=== PATIENT | female | born 1990 | race Two or more races ===

== ENCOUNTER → 2017-06-21 17:07 | Outpatient (CLI) | payer OTHER, SELFPAY ==
[2017-06-21 17:53] LABS: Basophils % 0.5 % (0.1-2.0); Eosinophils # 0.2 K/mm3 (0.0-0.4); Hematocrit 40.9 % (37.0-47.0); Hemoglobin 13.5 g/dL (12.2-16.2); Lymphocytes # 2.1 K/mm3 (0.7-4.5); Lymphocytes % 28.2 K/mm3 (10-50); Mean Corpuscular Volume 87.7 fl (81-99); Mean Platelet Volume 8.4 fl (7.4-10.4); Monocytes # 0.3 K/mm3 (0.1-1.0); Monocytes % 4.4 % (1.7-9.3); Neutrophils # 4.8 K/mm3 (1.8-7.8); Neutrophils % 63.9 % (37.0-80.0); Platelet Count 219 K/mm3 (142-424); Red Blood Count 4.67 M/mm3 (4.20-5.40); Red Cell Distribution Width 13.1 % (11.5-17.5); White Blood Count 7.5 K/mm3 (4.8-10.8)
[2017-06-23 08:25] LABS: HIV Screen 4th Generation wRfx Non Reactive (Non Reactive)
[2017-06-23 11:12] LABS: Hepatitis B Surface Antigen Negative (Negative); Hepatitis C Antibody 0.1 s/co ratio (0.0-0.9); Rapid Plasma Reagin Ab Titer Non Reactive (NonRea<1:1); Rubella Antibodies, IgG 1.85 index (Immune >0.99)
== END ==
PROVIDERS: Visit Provider Nurse Practitioner Obstetrics & Gynecology
DX: Z34.90 Encounter for supervision of normal pregnancy, unspecified, unspecified trimester (principal)
CPT/HCPCS: 36415; 85025; 86592; 86703; 86762; 86850; 87340; 87380; G0432

== ENCOUNTER → 2017-06-29 14:51 | Outpatient (CLI) | payer OTHER, SELFPAY ==
--- NOTE | 2017-06-29 14:58 | US_ITS ---
US OB transvaginal HISTORY: Evaluate gestational age ITS.REASON: DATES ORDERING PHYSICIAN: Pedro Montero MD PATIENT AGE: 27 years COMPARISON: None FINDINGS: There is a live intrauterine gestation with a crown-rump length of 4.9 cm correlating to gestational age of 11 weeks 5 days. heart and body motion is detected. Estimated due date is 01/13/2018. heart tones are present with an FHR of 1 45 bpm. There is a triangular-shaped area of heterogeneous decreased echogenicity adjacent to the described . This is of questionable clinical significance and could represent a resolving sac or an area of retroplacental hemorrhage. Continued follow-up is recommended. Adnexa are not well delineated.. IMPRESSION: 1. Live IUP at 11 weeks 5 days with an estimated due date of 01/13/2018. 2. Decreased echogenicity along the lower uterine segment adjacent to the gestation and could be related to resolving sac or small area of retroplacental hemorrhage. Continued follow-up recommended
== END ==
PROVIDERS: Visit Provider Nurse Practitioner Obstetrics & Gynecology
DX: O26.841 Uterine size-date discrepancy, first trimester (principal)
CPT/HCPCS: 76830

== ENCOUNTER → 2017-08-30 14:37 | Outpatient (CLI) | payer OTHER, SELFPAY ==
--- NOTE | 2017-08-30 14:38 | US_ITS ---
US OB /maternal detail: INDICATION: ITS.REASON: 20 wk + Anatomy Scan OB Complete ORDERING PHYSICIAN: Pedro Montero MD PATIENT AGE: 27 years TECHNIQUE: ultrasound transabdominal scanning. COMPARISON: No previous relevant studies. FINDINGS: Single viable intrauterine gestation. cephalic position. Placenta: posterior placenta grade 1. There is average amount fluid. The cervix appears satisfactory. Closed and measuring 4 cm in length. Complete survey performed and was unremarkable on the submitted images as in PACS. No discrete anomalies identified on survey imaging by technologist. Active fetus. Three-vessel cord with satisfactory umbilical cord insertion. 4- chamber heart noted. Survey of brain & ventricles. Face and neck survey unremarkable. Diaphragm and chest views unremarkable. Abdomen: Both kidneys noted and unremarkable. Stomach noted and satisfactory. Spine: Survey of the spine satisfactory with no anomalies identified nor imaged. Both arms and legs noted. Amniotic Fluid: Adequate. Maternal adnexa: No significant findings. Measurements: Average ultrasound age 21w1d. Gestational Age 20w4d. Estimated due date by ultrasound age 0801/09/2018. Estimated weight 410 grams.. This is 82nd percentile BPD = 21w1d OFD = 21w1d HC = 20w3d AC = 21w6d FL = 21w0d Heart Rate = 147 bpm Cerebellum = 20w6d Humerus = 21w0d HC/AC is 1.07 (1.09-1.26). CI is 78% (70-86%). FL/BPD is 70%. FL/AC is 21%. IMPRESSION: Live intrauterine gestation which is in cephalic presentation with an average ultrasound age of 21 weeks and 1 day. No obvious anomalies. Please see above for detail
== END ==
PROVIDERS: Family Provider Nurse Practitioner Obstetrics & Gynecology; PCP Nurse Practitioner Obstetrics & Gynecology; Visit Provider Nurse Practitioner Obstetrics & Gynecology
DX: Z36.0 Encounter for antenatal screening for chromosomal anomalies (principal)
CPT/HCPCS: 76811

== ENCOUNTER → 2017-12-13 18:02 | Outpatient (REF) | payer OTHER, SELFPAY | LOC: LAB 18:02 | PROVIDERS: Visit Provider Nurse Practitioner Obstetrics & Gynecology | DX: Z34.90 Encounter for supervision of normal pregnancy, unspecified, unspecified trimester (principal) | CPT/HCPCS: 86403 ==

== ENCOUNTER 2018-01-09 07:40 | Inpatient (IN) ==
--- NOTE | 2018-01-09 08:08 | History & Physical Report ---
OB - H&P: HPI Antepartum - History of Present Illness Chief complaint: Contractions History of present illness: She is a 27-year-old 4 para 3 at 39+ weeks gestational age. She began having contractions about 4:00 this morning. She arrived and she is found to be 9 cm dilated. - History of Present Criteria for establishing EDC:: LMP confirmed by 1st trimester US care: good care Ultrasounds: normal 1st trimester US, normal mid trimester US Obstetrical complications: none Medical complications: none H History I have reviewed the patient's past medical history: Yes Amputation: No Fractures: No - *Social History Smoking Status: Never smoker Alcohol Intake: never Substance Use Type: denies use *Family Hx:: Unable to obtain Review of Systems - Review of Systems Review of systems:: pertinent systems reviewed and negative unless documented below Meds Home Medications Medication Instructions Recorded Confirmed Type 1 tab PO QDAY 06/21/17 History vitamin,calcium,mvcrhdee-atlk-bifvz acid tablet Allergies Allergy/AdvReac Type Severity Reaction Status Date / Time No Known Allergies Allergy Verified 01/01/18 16:23 OB - H&P: Exam - Constitutional no acute distress - Routine HEENT Exam Head: Present: normocephalic Eye: Present: EOMI, PERRL ENT: Present: mucous membranes moist - Routine Neck Exam Present: supple, full ROM - Routine Respiratory Exam Absent: accessory muscle use (good air entry bilaterally), respiratory distress , wheezes, crackles - Routine Cardiovascular Exam Present: RRR. Absent: murmur - Routine Abdominal Exam Present: soft, normoactive bowel sounds. Absent: tenderness, distended, guarding - Routine Rectal Exam Patient deferred: visual exam, digital exam - Routine Exam Patient deferred: external exam, groin exam, perineal exam - Routine Extremities Exam Present: full ROM. Absent: cyanosis, edema - Routine Skin Exam Present: intact. Absent: cyanosis - Routine Neurological Exam Present: alert, oriented X3 - Routine Psychiatric Exam Present: normal affect OB - A/P Antepartum (1) Normal delivery Current visit: Yes Status: Acute (2) Current visit: No Status: Acute - Additional Plan Planning to breastfeed?: Yes Plan: expectant management Additional Information:: She is 9 cm dilated and will deliver shortly
--- NOTE | 2018-01-09 08:22 | Procedure Note ---
- Delivery Note Delivery Date:: 01/09/18 Delivery Time:: 08:14 Anesthesia Type: None Was labor medically induced?: No Induction method: none Gestational age (weeks): 39 delivered prior to 39 weeks?: No Justification for early elective delivery:: Active Labor Infant Gender: Male at 1 minute: 9 at 5 minutes: 9 AF:: Clear fluid Delivery Procedure:: She is a 27-year-old 4 para 3 who came in in active labor. She is found to be 9 cm dilated. She subsequently progressed to full dilation and delivered spontaneously a live born male child at 8:14 AM on the morning of January 09, 2018. On deliver the head there was a nuchal cord that was easily reduced. This was followed by the rest of the 's body atraumatically. The oropharynx and nasopharynx were bulb suctioned. The baby cried spontaneously. We allow the cord to continue to pulsate for 1 minute. The cord was then doubly clamped and cut and the infant was placed on the mother's abdomen for further care. The nurses assigned Apgars of 9 at 1 minute and 9 at 5. She then received IV oxytocin and gentle traction on the cord and countertraction the fundus I was able to easily deliver the placenta intact. Normal three-vessel cord. There were no perineal or vaginal lacerations. She plans to breast-feed. The estimated blood loss was less than 400 cc. Placental Delivery Description: Spontaneous
[2018-01-09 08:47] VITALS: BP 120/60
[2018-01-09 08:50] LABS: Appearance,Urine CLEAR (Clear); Bilirubin,Urine Negative (Negative); Blood, Urine TRACE-I (Negative); Color,Urine YELLOW (Yellow); Glucose,Urine (UA) Negative (Negative); Ketones,Urine Negative (Negative); Leukocyte Esterase,Urine Negative (Negative); Microscopic, Urine URINE MICROSCOPIC (MICROSCOPIC); PH,Urine 6.5 (5.0-8.5); Protein,Urine Negative (Negative); Urobilinogen,Urine 0.2 EU/dl (0.2)
[2018-01-09 08:59] LABS: Bacteria,Urine 1+ /lpf; Mucus,Urine 1+ /lpf; RBC,Urine Occasional #/hpf (0-3); Squamous Epithelial Cell,Urine 20-50 #/hpf (0-5)
[2018-01-09 09:07] LABS: Basophils % 0.2 % (0.1-2.0); Eosinophils # 0.1 K/mm3 (0.0-0.4); Hematocrit 35.2 % (37.0-47.0); Hemoglobin 11.3 g/dL (12.2-16.2); Lymphocytes # 1.3 K/mm3 (0.7-4.5); Lymphocytes % 17.3 K/mm3 (10-50); Mean Corpuscular HGB Conc 32.2 g/dL (31.8-35.4); Mean Corpuscular Volume 83.8 fl (81-99); Mean Platelet Volume 9.4 fl (7.4-10.4); Monocytes # 0.3 K/mm3 (0.1-1.0); Monocytes % 4.3 % (1.7-9.3); Neutrophils # 5.9 K/mm3 (1.8-7.8); Neutrophils % 77.2 % (37.0-80.0); Platelet Count 182 K/mm3 (142-424); Red Cell Distribution Width 15.2 % (11.5-17.5); White Blood Count 7.7 K/mm3 (4.8-10.8)
[2018-01-10 06:26] LABS: Hematocrit 35.3 % (37.0-47.0)
--- NOTE | 2018-01-10 10:05 | Progress Note ---
Internal Medicine - PN: Subj *Date: 01/10/18 *Time: 10:05 Interval history: She continues to do well this morning. She is eating and drinking and ambulating. She is breast-feeding. Her lochia is normal. Exam Vital signs and Labs for Last 24 Hours: Temp Pulse Resp BP Pulse Ox 98.0 F 80 20 120/60 100 01/09/18 08:45 01/09/18 08:45 01/09/18 08:45 01/09/18 08:45 01/09/18 08:45 Laboratory Results - last 24 hr 01/10/18 05:06: Hgb 11.0 L, Hct 35.3 L I & O for Last 24 hours: Intake & Output 01/07/18 01/08/18 01/09/18 01/10/18 11:59 11:59 11:59 11:59 Weight 180 lb 13.313 oz - Constitutional no acute distress Assessment and Plan (1) Normal delivery Current visit: Yes Status: Acute Category: Medical Code(s): O80 - Encounter for full-term uncomplicated delivery (2) Current visit: No Status: Acute Qualifiers: Weeks of gestation: 38 weeks Qualified Code(s): Z3A.38 - 38 weeks gestation of Category: Medical Code(s): Z34.90 - Encounter for supervision of normal , unspecified, unspecified trimester - Assessment and plan all Dx Assessment and Plan for all problems:: She is doing well this morning. We will plan to send her home tomorrow.
--- NOTE | 2018-01-11 08:39 | Discharge Summary ---
General - General Admission date:: 01/09/18 Discharge date: 01/11/18 HPI HPI: She is a 27-year-old 4 now para 4 who is 33 weeks gestational age. She did active labor and was found to be 9 cm dilated. Hospital Course Hospital Course: She rapidly progressed to full dilation and delivered spontaneously a live born male child in the morning of January 09, 2018. The baby 6 lbs. 14 oz. and was 20 -1/2 inches long. He had Apgars of 9 at 1 minute and 9 at 5 minutes. There were no perineal or vaginal lacerations. Done well and has remained afebrile throughout her hospitalization. She is eating and drinking and ambulating. She is breast-feeding. She has O+ blood she is rubella immune and was group B streptococcus negative. She is discharged home to follow-up with me in approximately 2 weeks time. She would like a tubal ligation and we will arrange this as well. Objective Vital signs: Temp Pulse Resp BP Pulse Ox 98.0 F 80 20 120/60 100 01/09/18 08:45 01/09/18 08:45 01/09/18 08:45 01/09/18 08:45 01/09/18 08:45 no acute distress DS: Diagnosis - Discharge Diagnosis (1) Normal delivery Status: Acute (2) Status: Acute Discharge Plan - Patient Discharge Instructions ACTIVITY: No heavy lifting DIET: continue same diet - Follow up Plan Disposition: Home, Self-[facility] Medications: Home Medications Medication Instructions Recorded Confirmed Type 1 tab PO DAILY 06/21/17 01/10/18 History vitamin,calcium,lmshxifp-hotk-jxtvt acid tablet Prescriptions/Medication Reconciliation: Continue vitamin,calcium,pfzpaoni-yzic-jcrfo acid tablet 1 tab PO DAILY
== END 2018-01-11 10:15 | disposition home or self-care (01) ==
LOC: OBOUT 07:40 → OB 07:42
PROVIDERS: ADMIT Nurse Practitioner Obstetrics & Gynecology; ATTEND Nurse Practitioner Obstetrics & Gynecology